=== PATIENT | male | born 1960 | race Caucasian/White ===

== ENCOUNTER 2024-02-22 09:46 | Outpatient (CLI) | payer OTHER ==
--- NOTE | 2024-02-25 16:01 | MRI Report ---
PROCEDURE: Brain WO INDICATIONS: MENINGIOMA TECHNIQUE: Noncontrast axial T1 spin echo, axial T2 fast spin echo, sagittal and axial FLAIR, coronal T2 fast sp in echo, axial gradient echo, axial diffusion and ADC through the brain. COMPARISON: None. FINDINGS: Image quality: Excellent. CSF Spaces: Basal cisterns are patent. No extra-axial fluid collections. Ventricles are normal in size and shape. Brain: No intracranial hemorrhage. 8 x 5 mm left frontal convexity extra-axial mass demonstrating r elative isointensity on T2 and hyperintensity on FLAIR. No mass effect. Appearance is stable. Owens/wh ite matter interface is normal. Brainstem appears normal. Diffusion-weighted images demonstrate no acute ischemic insult. No chronic ischemic insults. Normal intravascular flow voids are present. Skull and face: Calvarium has normal marrow signal. Orbits appear normal. Sinuses: Sinuses and mastoids are clear. IMPRESSION: Stable appearance of extra-axial left frontal convexity mass most suggestive of meningioma. No mass e ffect. No contrast images were acquired on imaging evaluation. Reviewed by: Aurelia Hwang MD on 02/25/2024 4:00 PM PDT Approved by: Aurelia Hwang MD on 02/25/2024 4:00 PM PDT Station ID: [id number]
== END 2024-02-22 09:47 | disposition home or self-care (01) ==
LOC: DI 09:46
PROVIDERS: ATTEND Family Medicine
DX: D32.9 Benign neoplasm of meninges, unspecified (principal)